=== PATIENT | male | born 1970 | race Caucasian/White ===

== ENCOUNTER 2022-11-27 22:24 | Emergency (ER) | payer OTHER ==
[~2022-11-27] VITALS: Ht 172.7 cm; Wt 97.5 kg
[2022-11-27 22:33] VITALS: BP 141/96; PULSE 94; RESP 17; TEMP 97.9; O2SAT 97
--- NOTE | 2022-11-28 00:08 | NUR ---
PT AMBULATED TO ER BED 11
--- NOTE | 2022-11-28 01:04 | NUR ---
Patient being evaluated by physician at bedside.
--- NOTE | 2022-11-28 01:19 | NUR ---
URINE COLLECTED URINE DIP CHARTED
[2022-11-28] MEDS ORDERED: HYDR-5191 PO (01:31)
[2022-11-28] MEDS ORDERED: DIPH25TA53 PO (01:31)
--- NOTE | 2022-11-28 01:40 | NUR ---
Patient discharged with v/s stable. Written and verbal after care instructions given and explained. Patient alert, oriented and verbalized understanding of instructions. Ambulatory with steady gait. All questions addressed prior to discharge. ID band removed. Patient advised to follow up with PMD. Rx of Benadryl and Thomson sent to preferred pharmacy. Patient educated on indication of medication including possible reaction and side effects. Opportunity to ask questions provided and answered.
[2022-11-28 01:45] VITALS: BP 131/75; PULSE 89; RESP 17; TEMP 97.9; O2SAT 97
== END 2022-11-28 01:40 | disposition home or self-care (01) ==
LOC: MED 22:24
DX: R51.9 Headache, unspecified (principal); R35.0 Frequency of micturition; G47.00 Insomnia, unspecified; E11.9 Type 2 diabetes mellitus without complications; Z79.4 Long term (current) use of insulin; Z79.899 Other long term (current) drug therapy; Z90.49 Acquired absence of other specified parts of digestive tract; Z90.89 Acquired absence of other organs
CPT/HCPCS: 81002; 99283

== ENCOUNTER 2023-02-20 21:48 | Emergency (ER) | payer OTHER ==
[~2023-02-20] VITALS: Ht 172.7 cm; Wt 86.2 kg
[~2023-02-20 21:48] MED LIST: DIPH25TA53 PO; HYDR-5191 PO
[2023-02-20 21:55] VITALS: BP 140/90; PULSE 80; RESP 16; TEMP 97.8; O2SAT 98
[2023-02-20] MEDS ORDERED: PHENAZOPYRIDINE 100 MG TAB PO ONE (22:40)
[2023-02-20 23:27] LABS: APPEARANCE,URINE CLEAR (CLEAR); BILIRUBIN,URINE NEGATIVE (NEGATIVE); BLOOD, URINE 3+ (NEGATIVE); COLOR,URINE YELLOW (YELLOW); LEUKOCYTE ESTERASE ,URINE NEGATIVE (NEGATIVE); NITRITE, URINE NEGATIVE (NEGATIVE); PH,URINE 5.5 (5.0-9.0); PROTEIN,URINE 2+ (NEGATIVE); UGLUCOSE NEGATIVE (NEGATIVE); UROBILINOGEN,URINE 0.2 EU/dL (0.2 - 1)
[2023-02-20 23:29] LABS: RBC,URINE TOO NUMEROUS TO COUN /HPF (0-5)
[2023-02-20 23:30] LABS: BACTERIA,URINE 10-30 (MOD) /HPF (None Seen); MUCUS,URINE 1+ /LPF (None Seen); SQUAMOUS EPITHELIAL CELL,UR 0-3 (FEW) /LPF (0-3 (FEW)); WBC,URINE 0-5 /HPF (0-5)
[2023-02-21] MEDS ORDERED: PYR100 PO (00:03)
[2023-02-21] MEDS ORDERED: CEPH-588 PO (00:03)
[2023-02-21 00:48] VITALS: BP 134/84; PULSE 80; RESP 16; TEMP 97.8; O2SAT 98
== END 2023-02-21 00:48 | disposition home or self-care (01) ==
LOC: MED 21:48
DX: T83.018A Breakdown (mechanical) of other urinary catheter, initial encounter (principal); R82.71 Bacteriuria; E11.9 Type 2 diabetes mellitus without complications; N40.0 Benign prostatic hyperplasia without lower urinary tract symptoms; Z79.899 Other long term (current) drug therapy; Y84.6 Urinary catheterization as the cause of abnormal reaction of the patient, or of later complication, without mention of misadventure at the time of the procedure; Y92.89 Other specified places as the place of occurrence of the external cause
CPT/HCPCS: 51702; 81001; 99284

== ENCOUNTER 2023-03-08 00:50 | Emergency (ER) | payer OTHER ==
[~2023-03-08] VITALS: Ht 172.7 cm; Wt 86.2 kg
[~2023-03-08 00:50] MED LIST changes: +CEPH-588 PO; +PYR100 PO
[2023-03-08 01:58] VITALS: BP 126/104; PULSE 98; RESP 18; TEMP 98.5; O2SAT 86
[2023-03-08 03:24] LABS: APPEARANCE,URINE CLOUDY (CLEAR); BILIRUBIN,URINE NEGATIVE (NEGATIVE); BLOOD, URINE 1+ (NEGATIVE); COLOR,URINE YELLOW (YELLOW); LEUKOCYTE ESTERASE ,URINE 2+ (NEGATIVE); NITRITE, URINE POSITIVE (NEGATIVE); PROTEIN,URINE 2+ (NEGATIVE); UGLUCOSE NEGATIVE (NEGATIVE); UROBILINOGEN,URINE 0.2 EU/dL (0.2 - 1)
[2023-03-08 03:40] LABS: BACTERIA,URINE >30 (MANY) /HPF (None Seen); MUCUS,URINE 1+ /LPF (None Seen); SQUAMOUS EPITHELIAL CELL,UR 0-3 (FEW) /LPF (0-3 (FEW)); WBC,URINE TOO MANY TO COUNT /HPF (0-5)
[2023-03-08] MEDS ORDERED: cephALEXin 500 MG CAP PO ONE (03:40)
[2023-03-08] MEDS ORDERED: ACETAMINOPHEN EXTRA STRENGTH 500 MG TAB PO ONE (03:40)
[2023-03-08 03:42] VITALS: BP 128/98; PULSE 82; RESP 17; TEMP 98.6; O2SAT 98
[2023-03-08] MEDS ORDERED: CEPH-588 PO ×2 (03:46→03:56)
[2023-03-10] MEDS ORDERED: LEVO750T75 PO (13:18)
== END 2023-03-08 03:58 | disposition home or self-care (01) ==
LOC: MED 00:50
DX: N39.0 Urinary tract infection, site not specified (principal); Z79.899 Other long term (current) drug therapy
CPT/HCPCS: 51702; 81001; 87086; 99284

== ENCOUNTER 2023-07-28 10:12 | Emergency (ER) | payer OTHER ==
[~2023-07-28] VITALS: Ht 172.7 cm; Wt 83.9 kg
[~2023-07-28 10:12] MED LIST changes: +LEVO750T75 PO
[2023-07-28 10:27] VITALS: BP 138/87; PULSE 76; RESP 18; TEMP 98.9; O2SAT 98
[2023-07-28 10:35] VITALS: O2SAT 98
[2023-07-28] MEDS: KETOROLAC 60 MG/2 ML VIAL IM ONE (11:39)
[2023-07-28 11:50] LABS: BASOPHILS # (AUTO) 0.1 K/uL (0.00-0.22); BASOPHILS % (AUTO) 1.1 % (0.0-2.0); EOSINOPHILS # (AUTO) 0.1 K/uL (0-0.4); EOSINOPHILS % (AUTO) 1.4 % (0.0-4.0); HEMATOCRIT 37.9 % (36-52); HEMOGLOBIN 13.3 g/dL (12.0-18.0); LYMPHOCYTES # (AUTO) 1.6 K/uL (2.0-11.5); LYMPHOCYTES % (AUTO) 30.2 % (20.5-51.1); MEAN CORPUSCULAR HEMOGLOBIN 29 pg (27-31); MEAN CORPUSCULAR HGB CONC 35 g/dL (33-37); MEAN CORPUSCULAR VOLUME 81.9 fL (80-94); MONOCYTES # (AUTO) 0.3 K/uL (0.8-1.0); MONOCYTES % (AUTO) 4.8 % (1.7-9.3); NEUTROPHILS # (AUTO) 3.3 K/uL (1.8-7.7); NEUTROPHILS % (AUTO) 62.5 % (42.2-75.2); PLATELET COUNT (AUTO) 211 K/uL (140-450); RED BLOOD CELL COUNT(AUTO) 4.63 MIL/uL (4.20-6.10); WHITE BLOOD COUNT (AUTO) 5.2 K/uL (4.8-10.8)
[2023-07-28 11:57] LABS: ANION GAP 9.9 (8-16); CARBON DIOXIDE 30.2 mmol/L (21-32); CREATININE 1.2 mg/dL (0.6-1.3); POTASSIUM 4.1 mmol/L (3.5-5.1)
[2023-07-28 12:03] LABS: ALBUMIN 3.8 g/dL (3.4-5.0); BILIRUBIN,DIRECT 0.2 mg/dL (0.0-0.3); TOTAL BILIRUBIN 0.7 mg/dL (0.0-1.0); TOTAL PROTEIN, SERUM 8.2 g/dL (6.4-8.2)
[2023-07-28] MEDS ORDERED: IBUP-2213 PO (12:23)
[2023-07-28] MEDS ORDERED: OMEP40EC23 PO (12:23)
== END 2023-07-28 12:30 | disposition home or self-care (01) ==
LOC: MED 10:12
DX: R10.13 Epigastric pain (principal); E11.9 Type 2 diabetes mellitus without complications; N28.9 Disorder of kidney and ureter, unspecified; Z79.4 Long term (current) use of insulin; Z79.899 Other long term (current) drug therapy; Z90.49 Acquired absence of other specified parts of digestive tract; Z90.89 Acquired absence of other organs
CPT/HCPCS: 36415; 80048; 80076; 83690; 85025; 96365; 99284; J1885

== ENCOUNTER 2023-08-04 17:07 | Emergency (ER) | payer OTHER ==
[~2023-08-04] VITALS: Ht 172.7 cm; Wt 86.2 kg
[~2023-08-04 17:07] MED LIST changes: +IBUP-2213 PO; +OMEP40EC23 PO
[2023-08-04 17:19] VITALS: BP 158/95; PULSE 87; RESP 18; TEMP 98; O2SAT 99
[2023-08-04] MEDS: HYDROcodone/APAP 7.5/325 MG 1 TAB PO ONE (18:51)
[2023-08-04] MEDS: KETOROLAC 30 MG/ML VIAL IM ONE (18:51)
[2023-08-04] MEDS ORDERED: LID5T TP (19:27)
[2023-08-04] MEDS ORDERED: GABA300C PO (19:27)
== END 2023-08-04 19:32 | disposition home or self-care (01) ==
LOC: MED 17:07
DX: M47.812 Spondylosis without myelopathy or radiculopathy, cervical region (principal); E11.9 Type 2 diabetes mellitus without complications; Z87.448 Personal history of other diseases of urinary system; Z79.899 Other long term (current) drug therapy
CPT/HCPCS: 72040; 96372; 99283; J1885